=== PATIENT | female | born 1970 ===

== ENCOUNTER 2020-08-25 10:44 | Day surgery (SDC) | payer OTHER, BC ==
[~2020-08-25 10:44] MED LIST: Lactated Ringers 1,000 ML IV SCH; Sodium Chloride 0.9% 10 ML SDV IV PRN; Sodium Chloride 0.9% 10 ML Syringe FLUSH PRN; Sodium Chloride 0.9% 2.5 ML Syringe FLUSH PRN; ceFAZolin 2 GM in Premix Bag 1 BAG IV ONE
[2020-08-25] MEDS ORDERED: Bupivacaine 0.5% 30 ML SDV ONE (11:47)
[2020-08-25] MEDS ORDERED: Lidocaine 1% 20 ML MDV ONE (11:47)
--- NOTE | 2020-08-25 11:52 | PCM.PREANE ---
Preanesthetic Assessment - Anesthesia/Transfusion/Family Hx Anesthesia History: Prior Anesthesia Reaction Type of Anesthesia Reaction: Excessive Nausea/Vomiting Family History of Anesthesia Reaction: No Transfusion History: No Prior Transfusion(s) - Review of Systems General: No Symptoms Pulmonary: No Symptoms Cardiovascular: No Symptoms Gastrointestinal: No Symptoms Neurological: No Symptoms Other: Reports: None - Physical Assessment NPO Status Date: 08/25/20 NPO Status Time: 00:01 Vital Signs: Last Vital Signs Temp 97.0 F 08/25/20 10:58 Pulse 70 08/25/20 10:58 Resp 15 08/25/20 10:58 BP 101/61 08/25/20 10:58 Pulse Ox 98 08/25/20 10:58 Height: 5 ft 5 in Weight: 122 lb ASA Class: 2 Mental Status: Alert & Oriented x3 Airway Class: Mallampati = 2 Dentition: Reports: Normal Dentition ROM/Head Extension: Full Lungs: Clear to Auscultation, Normal Respiratory Effort Cardiovascular: Regular Rate, Regular Rhythm - Allergies Allergies/Adverse Reactions: Allergies Allergy/AdvReac Type Severity Reaction Status Date / Time erythromycin base Allergy Abdominal Verified 08/24/20 10:23 Pain Penicillins Allergy Rash Verified 08/24/20 10:08 - Anesthesia Plan Pre-Op Medication Ordered: None - Acknowledgements Anesthesia Type Planned: General Anesthesia Pt an Appropriate Candidate for the Planned Anesthesia: Yes Alternatives and Risks of Anesthesia Discussed w Pt/Guardian: Yes Pt/Guardian Understands and Agrees with Anesthesia Plan: Yes Additional Comments: npo after mn hayfever depresion tob 2 cigarettes a day etoh none pt has a sm 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 with a nl size kidney on R side bmi 20 discussed options of local with sedation vs LMA general Pt wished to proceed with local with sedation par no questions PreAnesthesia Questionnaire HEENT History: Reports: Allergic Rhinitis, Other (See Below) Other HEENT History: wears glasses Cardiovascular History: Reports: None Respiratory History: Reports: None Gastrointestinal History: Reports: None Genitourinary History: Reports: Renal Calculus Other Genitourinary History: states has left kidneys Musculoskeletal History: Reports: Fracture Other Musculoskeletal History: hx fx arm as a child Neurological History: Reports: None Psychiatric History: Reports: Anxiety Endocrine/Metabolic History: Reports: None Hematologic History: Reports: None Immunologic History: Reports: None Oncologic (Cancer) History: Reports: None Dermatologic History: Reports: None - Past Surgical History Head Surgeries/Procedures: Reports: None HEENT Surgical History: Reports: Naso-Sinus Surgery Respiratory Surgical History: Reports: None GI Surgical History: Reports: Cholecystectomy Female Surgical History: Reports: Breast Implant, Endometrial Ablation, Tubal Ligation, Other (See Below) Other Female Surgeries/Procedures: ureteral stent placement & removal Endocrine Surgical History: Reports: None Neurological Surgical History: Reports: None Musculoskeletal Surgical History: Reports: None Oncologic Surgical History: Reports: None Dermatological Surgical History: Reports: None - SUBSTANCE USE Tobacco Use Status *Q: Light Tobacco User Tobacco Use Within Last Twelve Months: Cigarettes - HOME MEDS Home Medications: Home Meds Estradiol [Janee] 1 patch TRDERM ASDIRECTED 08/24/20 [History] Fexofenadine HCl 180 mg PO BEDTIME 08/24/20 [History] Montelukast [Singulair] 10 mg PO BEDTIME 08/24/20 [History] Progesterone, Micronized [Progesterone] 200 mg PO ASDIRECTED 08/24/20 [History] buPROPion HCL [Bupropion HCl Sr] 150 mg PO BEDTIME 08/24/20 [History] buPROPion HCL [Bupropion Xl] 300 mg PO ACBREAKFAST 08/24/20 [History] - CURRENT (IN HOUSE) MEDS Current Meds: Current Medications Lactated Ringer's (Ringers, Lactated) 1,000 mls @ 125 mls/hr IV ASDIRECTED [facility] Last Admin: 08/25/20 11:15 Dose: 125 mls/hr Documented by: Sodium Chloride (Sodium Chloride 0.9% 2.5 Ml Syringe) 2.5 ml FLUSH ASDIRECTED PRN PRN Reason: Keep Vein Open Sodium Chloride (Sodium Chloride 0.9% 10 Ml Sdv) 10 ml IV ASDIRECTED PRN PRN Reason: IV Use Sodium Chloride (Sodium Chloride 0.9% 10 Ml Syringe) 10 ml FLUSH ASDIRECTED PRN PRN Reason: Keep Vein Open Discontinued Medications Cefazolin Sodium/Dextrose 2 gm (/ Premix) 50 mls @ 100 mls/hr IV ONETIME ONE Stop: 08/24/20 16:01
[2020-08-25] MEDS ORDERED: Ondansetron 4 MG/2 ML SDV ONE (11:58)
[2020-08-25] MEDS ORDERED: Lidocaine 2% 5 ML SDV ONE (11:58)
[2020-08-25] MEDS ORDERED: Dexamethasone 4 MG/ML 5 ML MDV ONE (11:58)
[2020-08-25] MEDS ORDERED: Propofol 200 MG/20 ML SDV ONE ×2 (11:59→12:00)
[2020-08-25] MEDS ORDERED: Midazolam 1 MG/ML 2 ML SDV ONE (12:03)
[2020-08-25] MEDS ORDERED: HYDROmorphone 2 MG/ML Syringe IVPUSH PRN (13:09)
[2020-08-25] MEDS ORDERED: Ondansetron 4 MG/2 ML SDV IVPUSH PRN (13:09)
[2020-08-25] MEDS ORDERED: Metoclopramide 10 MG/2 ML SDV IVPUSH PRN (13:09)
[2020-08-25] MEDS ORDERED: Albuterol 0.083% 2.5 MG/3 ML Neb Soln NEB PRN (13:09)
[2020-08-25] MEDS ORDERED: fentaNYL 100 MCG/2 ML SDV IVPUSH PRN ×2 (13:09)
[2020-08-25] MEDS ORDERED: Naloxone 0.4 MG/ML Syringe IVPUSH PRN (13:09)
[2020-08-25] MEDS ORDERED: Morphine 2 MG/ML SYRINGE IVPUSH PRN (13:09)
[2020-08-25] MEDS ORDERED: Octyl 2-Cyanoacrylate 1 Tube ONE (13:12)
--- NOTE | 2020-08-25 14:02 | PCM.OPNOTE ---
- General Post-Op/Procedure Note Date of Surgery/Procedure: 08/25/20 Operative Procedure(s): Excision anterior chest wall skin lesion. Excisional biopsy right breast Findings: Skin lesion chest wall: Size: 1.2 x 1 cm. Margins: 2 cm x 1.6 cm x 1 cm (Single stitch right lateral edge, single loop superior edge) Right breast biopsy: 5 x 3 x 4mm in size. Right breast biopsy deep: 5 x 5 x 5mm in size Pre Op Diagnosis: Nipple changes, non healing skin lesion Post-Op Diagnosis: same Anesthesia Technique: Local, MAC Primary Surgeon: Rianna Washington Fluid Replacement, Intraop: 700 EBL in mLs: 10 Condition: Good Free Text/Narrative:: Intake & Output 08/24/20 08/25/20 08/25/20 22:59 06:59 14:59 Intake Total 750 Balance 750
--- NOTE | 2020-08-25 14:15 | PCM.POSTAN ---
POST ANESTHESIA ASSESSMENT - MENTAL STATUS Mental Status: Alert (no anesthetic problems), Oriented - VITAL SIGNS Vital Signs: Last Vital Signs Temp 97.3 F 08/25/20 13:41 Pulse 63 08/25/20 13:57 Resp 13 08/25/20 13:57 BP 103/60 08/25/20 13:57 Pulse Ox 98 08/25/20 13:57 - RESPIRATORY Respiratory Status: Respiratory Rate WNL, Airway Patent, O2 Saturation Stable - CARDIOVASCULAR CV Status: Pulse Rate WNL, Blood Pressure Stable - GASTROINTESTINAL GI Status: No Symptoms - POST OP HYDRATION Hydration Status: Adequate & Stable
--- NOTE | 2020-08-25 14:28 | PCM48HPAN ---
Post Anesthesia Note - EVALUATION WITHIN 48HRS OF ANESTHETIC Vital Signs in Normal Range: Yes Patient Participated in Evaluation: Yes Respiratory Function Stable: Yes Airway Patent: Yes Cardiovascular Function Stable: Yes Hydration Status Stable: Yes Pain Control Satisfactory: Yes Nausea and Vomiting Control Satisfactory: Yes Mental Status Recovered: Yes Vital Signs: Last Vital Signs Temp 97.5 F 08/25/20 14:05 Pulse 68 08/25/20 14:05 Resp 14 08/25/20 14:05 BP 100/59 L 08/25/20 14:05 Pulse Ox 99 08/25/20 14:05
--- NOTE | 2020-08-27 15:43 | OR ---
SURGEON: RIANNA WASHINGTON MD DATE OF PROCEDURE: 08/25/2020 PREOPERATIVE DIAGNOSES: Nipple anomaly, nonhealing skin lesion. POSTOPERATIVE DIAGNOSES: Nipple anomaly, nonhealing skin lesion. PROCEDURE PERFORMED: 1. Excision of anterior chest wall skin lesion. 2. Excisional biopsy, right breast nipple lesion. PRIMARY SURGEON: Rianna Washington MD ANESTHESIA: Local, MAC. FLUIDS: 700 mL of crystalloid. ESTIMATED BLOOD LOSS: 10 mL. FINDINGS: Skin lesion of the chest wall, size of lesion 1.2 x 1 cm. Margins 2 cm x 1.6 cm x 1 cm. Right breast biopsy 5 x 3 x 4 mm in size. Right breast biopsy deep 5 x 5 x 5 mm in size. COMPLICATIONS: None. INDICATIONS: The patient is a 49-year-old female who presented to my clinic with right nipple drainage. Workup revealed a questionable mass underneath the nipple. The patient underwent an MRI of the breast and a secondary ultrasound. This showed thickening of the tissue at the right nipple and just underneath it. The radiologist who did the secondary ultrasound could not identify a mass underneath this area worth biopsying. After visiting with the radiologist as well as the patient, a decision was made to perform an excisional biopsy of the right nipple to include the skin and the tissue deep to it. The patient also notes a nonhealing skin lesion right on her sternal notch. It has been present for months. It is scabbed over and pruritic. She does have a history of basal cell skin cancer. The decision was made to excise this at the same time. The patient and I discussed the procedures as well as the expected perioperative course. I explained the risks including bleeding, infection, or damage to surrounding structures. She verbalized understanding and wishes to proceed. PROCEDURE IN DETAIL: The patient was brought into the OR and placed on the OR table in supine position. A time-out was completed verifying the patient's name, age, date of , allergies, and procedure to be performed. Monitored anesthesia care was induced. The chest and right breast were then prepped and draped in usual standard fashion. Once adequate anesthesia was achieved, I anesthetized the area underlying the anterior skin wall lesion with 1% lidocaine plain. I measured the skin lesion to start. It measured 1.2 x 1 cm in size. An elliptical skin incision was drawn with a skin marker to follow the skin lines. I then used a 15 blade to make my incision. This was carried down to the subcutaneous fat. I then elevated my ellipse of skin containing this skin lesion and using cautery excised underneath it, taking care to take a layer of fat with the skin. The lesion was then placed on the back table and measured. It was 2 cm x 1.6 cm x 1 cm in size. To orient it, I placed a single stitch in the right lateral edge and a single looped stitch on the superior edge. It was sent to Pathology, labeled as anterior chest wall skin lesion. Electrocautery was used to achieve hemostasis. I then closed the lesion with interrupted 3-0 Vicryl in the subcutaneous fat layer. The skin was closed with a running 4-0 Monocryl stitch. Dermabond and a sterile dressing were applied. I then turned my attention to the right nipple. I anesthetized the area with 1% lidocaine plain as well as 0.5% Marcaine plain. In the 1 to 3 o'clock position on the right nipple, I made a kayley-shaped incision using 11 blade. This not only contained a piece of the nipple but the adjacent areola. I then elevated this with pickups. Using the 11 blade, I then incised underneath the piece of tissue. It was placed on the back table and measured. It measured 5 x 3 x 4 mm in size. It was sent to Pathology, labeled as right skin breast biopsy. I then used a pickup to grasp the tissue directly underneath my initial biopsy site. This breast tissue was elevated, and using an 11 blade, I excised a piece of the retroareolar breast tissue. This piece of tissue was then placed on the back table and measured. It measured 5 x 5 x 5 mm in size. The chest wall skin lesion was placed in formalin, taken to Pathology. The breast biopsy pieces were sent to Pathology fresh. I inspected my operative field. Hemostasis was achieved with electrocautery. I placed a deep subcutaneous interrupted 3-0 Vicryl suture to bring together the retroareolar breast tissue. I then closed the skin overlying this with interrupted 3-0 Ethilon sutures. Bacitracin and a nonadherent gauze pad were placed over the top of this. It was secured in place with tape. The patient tolerated the procedure well and was transferred to PACU in stable condition. All counts were complete and correct at the end of the case. MELISSA / RIVER /[id number]
== END 2020-08-25 14:33 | disposition home or self-care (01) ==
LOC: MW.SDS 10:44
PROVIDERS: ATTEND Surgery
DX: D24.1 Benign neoplasm of right breast (principal); C44.519 Basal cell carcinoma of skin of other part of trunk; N60.11 Diffuse cystic mastopathy of right breast; Z88.0 Allergy status to penicillin; F17.210 Nicotine dependence, cigarettes, uncomplicated; Z88.1 Allergy status to other antibiotic agents; Z79.899 Other long term (current) drug therapy; Z98.890 Other specified postprocedural states
CPT/HCPCS: 11602; 19120; 88305; 88307; A9270; J0690; J1100; J2250; J2704; J3490; J7120; 00400; J2405

== ENCOUNTER 2020-10-19 06:28 | Day surgery (SDC) | payer BC, OTHER ==
[~2020-10-19 06:28] MED LIST changes: +ceFAZolin 1 GM in Premix Bag 1 BAG IV ONE; -ceFAZolin 2 GM in Premix Bag 1 BAG IV ONE
[2020-10-19] MEDS ORDERED: Scopolamine 1.5 MG Transdermal Patch ONE (07:08)
[2020-10-19] MEDS ORDERED: Ondansetron 4 MG/2 ML SDV ONE ×2 (07:12→07:13)
[2020-10-19] MEDS ORDERED: propofoL 100 ML ONE (07:13)
[2020-10-19] MEDS ORDERED: fentaNYL 100 MCG/2 ML SDV ONE (07:13)
[2020-10-19] MEDS ORDERED: Lidocaine 2% 5 ML SDV ONE (07:13)
[2020-10-19] MEDS ORDERED: Metoclopramide 10 MG/2 ML SDV ONE (07:13)
--- NOTE | 2020-10-19 07:14 | PCM.PREANE ---
Preanesthetic Assessment - Anesthesia/Transfusion/Family Hx Anesthesia History: Prior Anesthesia Reaction Type of Anesthesia Reaction: Excessive Nausea/Vomiting Family History of Anesthesia Reaction: No Transfusion History: No Prior Transfusion(s) - Review of Systems General: No Symptoms Pulmonary: No Symptoms Cardiovascular: No Symptoms Gastrointestinal: No Symptoms Neurological: No Symptoms Other: Reports: None - Physical Assessment NPO Status Date: 10/19/20 NPO Status Time: 00:00 Vital Signs: Last Vital Signs Temp 97.3 F 10/19/20 07:05 Pulse 71 10/19/20 07:05 Resp 15 10/19/20 07:05 BP 91/54 L 10/19/20 07:05 Pulse Ox 97 10/19/20 07:05 Height: 5 ft 5 in Weight: 119 lb ASA Class: 2 Mental Status: Alert & Oriented x3 Dentition: Reports: Normal Dentition Thyro-Mental Finger Breadths: 2 Mouth Opening Finger Breadths: 3 ROM/Head Extension: Full Lungs: Clear to Auscultation, Normal Respiratory Effort Cardiovascular: Regular Rate, Regular Rhythm - Allergies Allergies/Adverse Reactions: Allergies Allergy/AdvReac Type Severity Reaction Status Date / Time erythromycin base Allergy Abdominal Verified 10/14/20 10:26 Pain Penicillins Allergy Rash Verified 10/14/20 10:26 - Blood Blood Available: No - Anesthesia Plan Pre-Op Medication Ordered: Other (Scoplolamine patch) - Acknowledgements Anesthesia Type Planned: General Anesthesia Pt an Appropriate Candidate for the Planned Anesthesia: Yes Alternatives and Risks of Anesthesia Discussed w Pt/Guardian: Yes Pt/Guardian Understands and Agrees with Anesthesia Plan: Yes PreAnesthesia Questionnaire HEENT History: Reports: Allergic Rhinitis, Other (See Below) Other HEENT History: wears glasses Cardiovascular History: Reports: None Respiratory History: Reports: None Gastrointestinal History: Reports: None Genitourinary History: Reports: Renal Calculus Other Genitourinary History: states has 2 left kidneys Musculoskeletal History: Reports: Fracture Other Musculoskeletal History: hx fx arm as a child Neurological History: Reports: None Psychiatric History: Reports: Anxiety Endocrine/Metabolic History: Reports: None Hematologic History: Reports: None Immunologic History: Reports: None Oncologic (Cancer) History: Reports: None Dermatologic History: Reports: None - Past Surgical History Head Surgeries/Procedures: Reports: None HEENT Surgical History: Reports: Naso-Sinus Surgery Cardiovascular Surgical History: Reports: None Respiratory Surgical History: Reports: None GI Surgical History: Reports: Cholecystectomy Female Surgical History: Reports: Breast Implant, Endometrial Ablation, Tubal Ligation, Other (See Below) Other Female Surgeries/Procedures: ureteral stent placement & removal Endocrine Surgical History: Reports: None Neurological Surgical History: Reports: None Musculoskeletal Surgical History: Reports: None Oncologic Surgical History: Reports: None Dermatological Surgical History: Reports: Other (See Below) - SUBSTANCE USE Tobacco Use Status *Q: Light Tobacco User Tobacco Use Within Last Twelve Months: Cigarettes - HOME MEDS Home Medications: Home Meds Estradiol [Janee] 1 patch TRDERM ASDIRECTED 08/24/20 [History] Fexofenadine HCl 180 mg PO BEDTIME 08/24/20 [History] Montelukast [Singulair] 10 mg PO BEDTIME 08/24/20 [History] Progesterone, Micronized [Progesterone] 200 mg PO ASDIRECTED 08/24/20 [History] buPROPion HCL [Bupropion HCl Sr] 150 mg PO BEDTIME 08/24/20 [History] buPROPion HCL [Bupropion Xl] 300 mg PO ACBREAKFAST 08/24/20 [History] - CURRENT (IN HOUSE) MEDS Current Meds: Current Medications Lactated Ringer's (Ringers, Lactated) 1,000 mls @ 125 mls/hr IV ASDIRECTED [facility] Sodium Chloride (Sodium Chloride 0.9% 10 Ml Syringe) 10 ml FLUSH ASDIRECTED PRN PRN Reason: Keep Vein Open Sodium Chloride (Sodium Chloride 0.9% 2.5 Ml Syringe) 2.5 ml FLUSH ASDIRECTED PRN PRN Reason: Keep Vein Open Sodium Chloride (Sodium Chloride 0.9% 10 Ml Sdv) 10 ml IV ASDIRECTED PRN PRN Reason: IV Use Discontinued Medications Cefazolin Sodium/Dextrose 1 gm (/ Premix) 50 mls @ 100 mls/hr IV ONETIME ONE Stop: 10/18/20 10:36 Scopolamine (Scopolamine 1.5 Mg Transdermal Patch) Confirm Administered Dose 1.5 mg .ROUTE .STK-MED ONE Stop: 10/19/20 07:09
[2020-10-19] MEDS ORDERED: Lactated Ringers 1,000 ML IV SCH (07:15)
[2020-10-19] MEDS ORDERED: HYDROmorphone 2 MG/ML Syringe IVPUSH PRN (07:15)
[2020-10-19] MEDS ORDERED: Sodium Chloride 0.9% 2.5 ML Syringe FLUSH PRN (07:15)
[2020-10-19] MEDS ORDERED: Ondansetron 4 MG/2 ML SDV IVPUSH PRN (07:15)
[2020-10-19] MEDS ORDERED: Metoclopramide 10 MG/2 ML SDV IVPUSH PRN (07:15)
[2020-10-19] MEDS ORDERED: Sodium Chloride 0.9% 10 ML Syringe FLUSH PRN (07:15)
[2020-10-19] MEDS ORDERED: Sodium Chloride 0.9% 10 ML SDV IV PRN (07:15)
[2020-10-19] MEDS ORDERED: Naloxone 0.4 MG/ML Syringe IVPUSH PRN (07:15)
[2020-10-19] MEDS ORDERED: Bupivacaine 0.5% 30 ML SDV ONE (07:29)
[2020-10-19] MEDS ORDERED: Lidocaine 1% 20 ML MDV ONE (07:29)
[2020-10-19] MEDS ORDERED: ceFAZolin 1 GM Vial ONE (08:30)
[2020-10-19] MEDS ORDERED: Octyl 2-Cyanoacrylate 1 Tube ONE ×2 (08:34→09:14)
--- NOTE | 2020-10-19 09:22 | PCM.POSTAN ---
POST ANESTHESIA ASSESSMENT - MENTAL STATUS Mental Status: Alert, Oriented - VITAL SIGNS Vital Signs: Last Vital Signs Temp 97.3 F 10/19/20 07:05 Pulse 71 10/19/20 07:05 Resp 15 10/19/20 07:05 BP 91/54 L 10/19/20 07:05 Pulse Ox 97 10/19/20 07:05 - RESPIRATORY Respiratory Status: Respiratory Rate WNL, Airway Patent, O2 Saturation Stable - CARDIOVASCULAR CV Status: Pulse Rate WNL, Blood Pressure Stable - GASTROINTESTINAL GI Status: No Symptoms - POST OP HYDRATION Hydration Status: Adequate & Stable
[2020-10-19] MEDS ORDERED: Ketorolac 30 MG/ML SDV ONE (09:26)
[2020-10-19] MEDS: fentaNYL 100 MCG/2 ML SDV IVPUSH PRN ×2 (09:36→09:45)
--- NOTE | 2020-10-19 10:15 | PCM.OPNOTE ---
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
--- NOTE | 2020-10-19 10:55 | PCM48HPAN ---
Post Anesthesia Note - EVALUATION WITHIN 48HRS OF ANESTHETIC Vital Signs in Normal Range: Yes Patient Participated in Evaluation: Yes Respiratory Function Stable: Yes Airway Patent: Yes Cardiovascular Function Stable: Yes Hydration Status Stable: Yes Pain Control Satisfactory: Yes Nausea and Vomiting Control Satisfactory: Yes Mental Status Recovered: Yes Vital Signs: Last Vital Signs Temp 97.2 F 10/19/20 10:00 Pulse 71 10/19/20 10:30 Resp 15 10/19/20 10:30 BP 97/62 10/19/20 10:30 Pulse Ox 94 L 10/19/20 10:30
--- NOTE | 2020-10-19 18:25 | OR ---
SURGEON: RIANNA WASHINGTON MD DATE OF PROCEDURE: 10/19/2020 PREOPERATIVE DIAGNOSES: 1. Changing skin lesion. 2. Intraductal papillomatosis of the right nipple. POSTOPERATIVE DIAGNOSES: 1. Changing skin lesion. 2. Intraductal papillomatosis of the right nipple. PROCEDURE PERFORMED: 1. Excision of anterior chest wall skin lesion. 2. Excision of right nipple and subareolar duct. PRIMARY SURGEON: Rianna Washington MD ANESTHESIA: General LMA, local. FLUIDS: 900 mL of crystalloid. ESTIMATED BLOOD LOSS: 25 mL. FINDINGS: Chest wall skin lesion 10 mm x 8 mm x 3 mm in size. No margins associated with case. Right breast nipple and areolar duct 2 cm x 1.5 cm x 2.5 mm. COMPLICATIONS: None. INDICATIONS: The patient is a 49-year-old female who presented to my clinic several months ago with a nonhealing lesion on her right nipple. Preoperative workup revealed intraductal papillomatosis of the area with no evidence of Paget's disease. The patient saw a general surgeon and plastic surgeon at an outside facility. After a long discussion, the patient decided to undergo excision of this nipple and the ducts underneath it given that the wound would not heal. She wanted to do this tenter frame back tender to home. I visited with the plastic surgeon and agreed to proceed. The patient came to see me in clinic, and we discussed the procedure, expected perioperative course, and the risks. During the visit, the patient also mentioned that she had a nonhealing skin lesion on her anterior chest wall that she would like removed at the same time. There was an approximately 6 mm skin lesion on the anterior chest wall, and I agreed to remove this at the same time. She verbalized understanding and wishes to proceed. PROCEDURE IN DETAIL: The patient was brought into the OR and placed on the OR table in supine position. A time-out was completed verifying the patient's name, age, date of , allergies, and procedure to be performed. General LMA anesthesia was induced. The chest and right breast were prepped and draped in usual standard fashion. I turned my attention to the right chest wall. I measured the skin lesion. It measured 5 mm in diameter. I anesthetized the area underneath this with 0.5% Marcaine plain. An elliptical incision was made around the skin lesion following the skin lines. I carried this down to the subcutaneous fat. I then undermined the lesion using electrocautery. It was then removed from the surrounding tissue and measured. This piece of tissue measured 10 mm x 8 mm x 3 mm in size. It was sent to Pathology, labeled as chest wall skin lesion. Hemostasis was achieved with electrocautery. The wound was then closed with an interrupted 4-0 Monocryl suture. The patient was concerned about an undissolved Prolene knot on her previous skin wall excision site. I opened this up with a 15 blade and explored the area. There was no evidence of any retained suture. This was closed using Dermabond. Dermabond was placed over the skin excision site. I then turned my attention to the right nipple. Using a 15 blade, I made a circumferential incision around the nipple itself. Electrocautery was then used to carry this through to the level of the subcutaneous fat/breast tissue. Then, using a 15 blade, I excised the tissue underneath the nipple. Several small arterial bleeders were noted. These were controlled using electrocautery. Once the piece of tissue was removed from the surrounding structures, it was placed on the back table. The superior edge was marked with a single looped silk suture. The medial/sternal edge was marked with a single long suture. The tissue itself measured 2 cm x 1.5 cm x 2.5 cm in size. It was sent to Pathology labeled as right breast nipple and retroareolar ducts. Hemostasis was achieved within the wound using electrocautery. I then brought a 3-0 Stratafix suture into the field. I then closed the wound with a single pursestring suture going from deep to superficial. This bunched the tissue underneath the center of the areola and then closed the overlying areolar tissue in the center. This mounted the tissue to give the appearance of a nipple. The wound was then covered in Dermabond, and a sterile dressing applied. The patient tolerated the procedure well, was extubated, and taken to PACU in stable condition. All counts were complete and correct at the end of the case. MELISSA / RIVER /[id number]
== END 2020-10-19 10:40 | disposition home or self-care (01) ==
LOC: MW.SDS 06:28
PROVIDERS: ATTEND Surgery
DX: D24.1 Benign neoplasm of right breast (principal); N60.11 Diffuse cystic mastopathy of right breast; L30.8 Other specified dermatitis; Z88.0 Allergy status to penicillin; Z88.1 Allergy status to other antibiotic agents; Z79.899 Other long term (current) drug therapy; Z98.890 Other specified postprocedural states
CPT/HCPCS: 11402; 19120; 88305; 88307; 88312; A9270; J0690; J1885; J2704; J3010; J3490; J7120; 00400; J2405; J2765